=== PATIENT | female | born 1945 | race Hispanic/Latino ===

== ENCOUNTER 2016-11-23 19:30 | Emergency (ER) | payer MEDICARE, OTHER ==
--- NOTE | 2016-11-23 20:08 | Emergency Department Report ---
ED Altered Mental Status HPI - General Chief Complaint: Altered Mental Status Stated Complaint: ALTERED MENTAL STATUS Time Seen by Provider: 11/23/16 20:07 Source: patient, family, EMS Mode of arrival: Stretcher Limitations: Altered Mental Status - History of Present Illness Initial Comments: This is a 71-year-old female with a fairly long and somewhat to seeing history. She endorses history of long-standing back pain. She is working with a pain specialist is taking hydrocodone as well as Tylenol for this. She does pill counting with the pain specialist. She was noted to be 4 pills short on her tramadol. The pain specialist was not willing to write for additional doses. She is able to refill her prescription for tramadol on November 28. Being warned that she may have some withdrawal due to this she did preemptively go to a different ED. While there she did make a statement about possibly taking some A else to cause herself harm which ultimately resulted in her being placed under a 1013. She spent the next 2 days of the same ED facility while awaiting placement in a psychiatric facility. She is ultimately transitioned [facility] this morning. [facility] she was exerted to have some bizarre behavior. There was concern for possible delusion of medical etiology. And she is now here for this reason. Patient endorses by aunt and bizarre behavior and does not have a reason for why she was doing other than she is now having some withdrawal symptoms and feels like she is being suboptimally treated at [facility]. She indicates that she has much concern as well due to having a roommate and having significant sleep disorder. She is concerned that she will be a burden to her roommate. She is very clear and appropriate otherwise. 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 She otherwise states that she is feeling is okay in general. She denies any history of drugs of abuse. Associated Symptoms: denies: cough, fever/chills, nausea/vomiting, rash, seizure - Related Data Allergies Allergy/AdvReac Type Severity Reaction Status Date / Time ciprofloxacin [From Cipro] Allergy Headache Verified 11/23/16 20:01 ciprofloxacin HCl Allergy Headache Verified 11/23/16 20:01 [From Cipro] ED Review of Systems ROS: Stated complaint: ALTERED MENTAL STATUS Other details as noted in HPI Comment: All other systems reviewed and negative Constitutional: denies: chills, fever Eyes: denies: eye pain, eye discharge, vision change ENT: denies: ear pain, throat pain Respiratory: denies: cough, shortness of breath, wheezing Cardiovascular: denies: chest pain, palpitations Endocrine: no symptoms reported Gastrointestinal: denies: abdominal pain, nausea, diarrhea Genitourinary: denies: urgency, dysuria, discharge Musculoskeletal: denies: back pain, joint swelling, arthralgia Skin: denies: rash, lesions Neurological: denies: headache, weakness, paresthesias Psychiatric: as per HPI, anxiety. denies: depression, auditory hallucinations, visual hallucinations, suicidal thoughts Hematological/Lymphatic: denies: easy bleeding, easy bruising ED Past Medical Hx - Past Medical History Hx Hypertension: Yes Additional medical history: high cholesterol. spondylolisthesis, depression, bladdder problems - Surgical History Past Surgical History?: Yes Additional Surgical History: Hernia repaair, shoulder surgery - Social History Smoking Status: Never Smoker Substance Use Type: None ED Physical Exam - General Limitations: Altered Mental Status General appearance: alert, anxious, other - Head Head exam: Present: atraumatic, normocephalic - Eye Eye exam: Present: normal appearance, PERRL, EOMI - ENT ENT exam: Present: normal exam, normal orophraynx, mucous membranes moist - Neck Neck exam: Present: normal inspection. Absent: tenderness, lymphadenopathy ( somewhat agitated appearing and constantly moving.) - Respiratory Respiratory exam: Present: normal lung sounds bilaterally. Absent: respiratory distress, wheezes, rhonchi - Cardiovascular Cardiovascular Exam: Present: normal rhythm, tachycardia. Absent: systolic murmur, diastolic murmur, rubs, gallop - GI/Abdominal GI/Abdominal exam: Present: soft, normal bowel sounds. Absent: tenderness - Extremities Exam Extremities exam: Present: normal inspection. Absent: tenderness, pedal edema, calf tenderness - Back Exam Back exam: Present: normal inspection, tenderness (on the lateral subscapular region bilaterally extending down to the lower back region.). Absent: CVA tenderness (R), CVA tenderness (L) - Neurological Exam Neurological exam: Present: alert, oriented X3 - Psychiatric Psychiatric exam: Present: agitated, anxious - Skin Skin exam: Present: warm, dry, intact, normal color. Absent: rash ED Course Vital Signs 11/23/16 11/23/16 20:08 20:12 Temperature 99.3 F Pulse Rate 97 H Respiratory 20 20 Rate Blood Pressure 149/89 [Right] O2 Sat by Pulse 95 95 Oximetry - Reevaluation(s) Reevaluation #1: 11/23/16 20:55 ECG at 2035 with sinus tachycardia at 107 bpm with a normal AK and 132 ms does have right bundle branch block. Normal axis is noted. There is Q waves inferiorly otherwise unremarkable. Reevaluation #2: 11/23/16 21:00 In summary as is patient seems somewhat manic. I feel that this is inappropriate diagnoses given the fact of her movement disorder. Think this causes it to be difficult objectively. The patient's mental status. She does indicate that on a chronic basis she does have a lot of ticks and movements. I feel that she is quite lucid right now. She is very clear in describing what is occurred. She is somewhat long-winded in the process but otherwise is very appropriate and follows thinks early fashion. She is able to think complex terms. She has good insight and recollection of why she is here. I have very low suspicion of a medical or I derangement causing her delirium. I suspect her delirium was more an etiology of her stressors that she is under currently at the [facility]. I have offered her an oral Valium here. She is not sure whether she like to accept this or not. Regardless, medically she is clear and she is stable and safe to return back to [facility] at this time. 11/23/16 22:42 The long conversation with the patient's mother Maize III [id number] Bren. She concurs with my assessment that I felt the patient is been poorly managed in regards to her being placed on a 1013. She'll for now that I need to continue with this course until it is rescinded by the psychiatrist. I do not feel comfortable personally rescinding this without authorization from psychiatrist who she is under [facility]. Does not feel appropriate for me to as my specialty is not psychiatry. Regardless I do feel the patient can be better managed to [facility]. I didn't obtain her medication list which was unremitting metoprolol and to [place]. In addition I do feel that there are 2 very separate issues going on with #1 the suicidal claim that she presented with number to the withdrawal symptoms. I hope that once she is considered clear from the psychiatric standpoint she'll be allowed to go home as I suspect this is in her best interest. I did make attempts to talk with the psychiatrist to [facility]. I was unable to connect with the psychiatrist. We' ll repeat this note. Did encourage the customer service representative teacher at [facility] to assess psychiatrist to review this note. - Lab Data Result diagrams: 11/23/16 20:15 11/23/16 20:15 Lab Results 11/23/16 11/23/16 11/23/16 Range/Units 20:15 20:15 20:15 WBC 10.9 (4.5-11.0) K/mm3 RBC 4.89 (3.65-5.03) M/mm3 Hgb 15.8 H (10.1-14.3) gm/dl Hct 46.2 H (30.3-42.9) % MCV 94 (79-97) fl MCH 32 (28-32) pg MCHC 34 (30-34) % RDW 13.5 (13.2-15.2) % Plt Count 245 (140-440) K/mm3 Lymph % (Auto) 14.1 (13.4-35.0) % Bartow % (Auto) 7.7 H (0.0-7.3) % Eos % (Auto) 0.2 (0.0-4.3) % Baso % (Auto) 0.4 (0.0-1.8) % Lymph # 1.5 (1.2-5.4) K/mm3 Bartow # 0.8 (0.0-0.8) K/mm3 Eos # 0.0 (0.0-0.4) K/mm3 Baso # 0.0 (0.0-0.1) K/mm3 Seg Neutrophils % 77.6 H (40.0-70.0) % Seg Neutrophils # 8.4 H (1.8-7.7) K/mm3 Sodium 132 L (137-145) mmol/L Potassium 3.2 L (3.6-5.0) mmol/L Chloride 90.3 L (98-107) mmol/L Carbon Dioxide 24 (22-30) mmol/L Anion Gap 21 mmol/L BUN 23 H (7-17) mg/dL Creatinine 0.8 (0.7-1.2) mg/dL Estimated GFR > 60 ml/min BUN/Creatinine Ratio 28.75 % Glucose 130 H (65-100) mg/dL Lactic Acid 1.5 (0.7-2.0) mmol/L Calcium 9.9 (8.4-10.2) mg/dL Magnesium 2.4 H (1.7-2.3) mg/dL Total Bilirubin 0.7 (0.1-1.2) mg/dL AST 29 (5-40) units/L ALT 20 (7-56) units/L Alkaline Phosphatase 108 (35-129) units/L Total Protein 7.8 (6.3-8.2) g/dL Albumin 4.9 (3.9-5) g/dL Albumin/Globulin Ratio 1.7 % TSH (0.270-4.200) mlU/mL Urine Color (Yellow) Urine Turbidity (Clear) Urine pH (5.0-7.0) Ur Specific Aubrey (1.003-1.030) Urine Protein (Negative) mg/dL Urine Glucose (UA) (Negative) mg/dL Urine Ketones (Negative) mg/dL Urine Blood (Negative) Urine Nitrite (Negative) Urine Bilirubin (Negative) Urine Urobilinogen (<2.0) mg/dL Ur Leukocyte Esterase (Negative) Urine WBC (Auto) (0.0-6.0) /HPF Urine RBC (Auto) (0.0-6.0) /HPF Urine Mucus /HPF Urine HCG, Qual (Negative) Salicylates (2.8-20.0) mg/dL Urine Opiates Screen Urine Methadone Screen Acetaminophen (10.0-30.0) ug/mL Ur Barbiturates Screen Ur Phencyclidine Scrn Ur Amphetamines Screen U Benzodiazepines Scrn Urine Cocaine Screen U Marijuana (THC) Screen Drugs of Abuse Note Plasma/Serum Alcohol (0-0.07) gm% 11/23/16 11/23/16 11/23/16 Range/Units 20:15 20:15 20:15 WBC (4.5-11.0) K/mm3 RBC (3.65-5.03) M/mm3 Hgb (10.1-14.3) gm/dl Hct (30.3-42.9) % MCV (79-97) fl MCH (28-32) pg MCHC (30-34) % RDW (13.2-15.2) % Plt Count (140-440) K/mm3 Lymph % (Auto) (13.4-35.0) % Bartow % (Auto) (0.0-7.3) % Eos % (Auto) (0.0-4.3) % Baso % (Auto) (0.0-1.8) % Lymph # (1.2-5.4) K/mm3 [place]ow # (0.0-0.8) K/mm3 Eos # (0.0-0.4) K/mm3 Baso # (0.0-0.1) K/mm3 Seg Neutrophils % (40.0-70.0) % Seg Neutrophils # (1.8-7.7) K/mm3 Sodium (137-145) mmol/L Potassium (3.6-5.0) mmol/L Chloride (98-107) mmol/L Carbon Dioxide (22-30) mmol/L Anion Gap mmol/L BUN (7-17) mg/dL Creatinine (0.7-1.2) mg/dL Estimated GFR ml/min BUN/Creatinine Ratio % Glucose (65-100) mg/dL Lactic Acid (0.7-2.0) mmol/L Calcium (8.4-10.2) mg/dL Magnesium (1.7-2.3) mg/dL Total Bilirubin (0.1-1.2) mg/dL AST (5-40) units/L ALT (7-56) units/L Alkaline Phosphatase (35-129) units/L Total Protein (6.3-8.2) g/dL Albumin (3.9-5) g/dL Albumin/Globulin Ratio % TSH 1.740 (0.270-4.200) mlU/mL Urine Color (Yellow) Urine Turbidity (Clear) Urine pH (5.0-7.0) Ur Specific Aubrey (1.003-1.030) Urine Protein (Negative) mg/dL Urine Glucose (UA) (Negative) mg/dL Urine Ketones (Negative) mg/dL Urine Blood (Negative) Urine Nitrite (Negative) Urine Bilirubin (Negative) Urine Urobilinogen (<2.0) mg/dL Ur Leukocyte Esterase (Negative) Urine WBC (Auto) (0.0-6.0) /HPF Urine RBC (Auto) (0.0-6.0) /HPF Urine Mucus /HPF Urine HCG, Qual (Negative) Salicylates < 0.3 L (2.8-20.0) mg/dL Urine Opiates Screen Urine Methadone Screen Acetaminophen < 15.0 (10.0-30.0) ug/mL Ur Barbiturates Screen Ur Phencyclidine Scrn Ur Amphetamines Screen U Benzodiazepines Scrn Urine Cocaine Screen U Marijuana (THC) Screen Drugs of Abuse Note Plasma/Serum Alcohol (0-0.07) gm% 11/23/16 11/23/16 11/23/16 Range/Units 20:15 21:13 21:14 WBC (4.5-11.0) K/mm3 RBC (3.65-5.03) M/mm3 Hgb (10.1-14.3) gm/dl Hct (30.3-42.9) % MCV (79-97) fl MCH (28-32) pg MCHC (30-34) % RDW (13.2-15.2) % Plt Count (140-440) K/mm3 Lymph % (Auto) (13.4-35.0) % [place] % (Auto) (0.0-7.3) % Eos % (Auto) (0.0-4.3) % Baso % (Auto) (0.0-1.8) % Lymph # (1.2-5.4) K/mm3 [place] # (0.0-0.8) K/mm3 Eos # (0.0-0.4) K/mm3 Baso # (0.0-0.1) K/mm3 Seg Neutrophils % (40.0-70.0) % Seg Neutrophils # (1.8-7.7) K/mm3 Sodium (137-145) mmol/L Potassium (3.6-5.0) mmol/L Chloride (98-107) mmol/L Carbon Dioxide (22-30) mmol/L Anion Gap mmol/L BUN (7-17) mg/dL Creatinine (0.7-1.2) mg/dL Estimated GFR ml/min BUN/Creatinine Ratio % Glucose (65-100) mg/dL Lactic Acid (0.7-2.0) mmol/L Calcium (8.4-10.2) mg/dL Magnesium (1.7-2.3) mg/dL Total Bilirubin (0.1-1.2) mg/dL AST (5-40) units/L ALT (7-56) units/L Alkaline Phosphatase (35-129) units/L Total Protein (6.3-8.2) g/dL Albumin (3.9-5) g/dL Albumin/Globulin Ratio % TSH (0.270-4.200) mlU/mL Urine Color Yellow (Yellow) Urine Turbidity Clear (Clear) Urine pH 6.0 (5.0-7.0) Ur Specific Aubrey 1.015 (1.003-1.030) Urine Protein <15 mg/dl (Negative) mg/dL Urine Glucose (UA) Neg (Negative) mg/dL Urine Ketones Tr (Negative) mg/dL Urine Blood Neg (Negative) Urine Nitrite Neg (Negative) Urine Bilirubin Neg (Negative) Urine Urobilinogen < 2.0 (<2.0) mg/dL Ur Leukocyte Esterase Neg (Negative) Urine WBC (Auto) < 1.0 (0.0-6.0) /HPF Urine RBC (Auto) 3.0 (0.0-6.0) /HPF Urine Mucus Few /HPF Urine HCG, Qual Negative (Negative) Salicylates (2.8-20.0) mg/dL Urine Opiates Screen Presumptive negative Urine Methadone Screen Presumptive negative Acetaminophen (10.0-30.0) ug/mL Ur Barbiturates Screen Presumptive negative Ur Phencyclidine Scrn Presumptive negative Ur Amphetamines Screen Presumptive negative U Benzodiazepines Scrn Presumptive negative Urine Cocaine Screen Presumptive negative U Marijuana (THC) Screen Presumptive negative Drugs of Abuse Note Disclamer Plasma/Serum Alcohol < 0.01 (0-0.07) gm% Critical care attestation.: If time is entered above; I have spent that time in minutes in the direct care of this critically ill patient, excluding procedure time. ED Disposition Clinical Impression: Delirium due to general medical condition Disposition: DC/TX PSY HOSP/PSY UNIT Is pt being admited?: No Does the pt Need Aspirin: No Condition: Stable Additional Instructions: Your labs are normal here except for a slightly low potassium. You are safe to continue on your detox protocol at [facility]. Eat a diet with potassium rich foods. You don't have your ditropan or metoprolol on your medication list. These should be added. Referrals: PRIMARY CARE, [Primary Care Provider] - 3-5 Days Time of Disposition: 21:58
[2016-11-23 20:10] VITALS: BP 149/89
[2016-11-23 20:51] LABS: Basophils % (Auto) 0.4 % (0.0-1.8); Eosinophils % (Auto) 0.2 % (0.0-4.3); Hematocrit 46.2 % (30.3-42.9); Hemoglobin 15.8 gm/dl (10.1-14.3); Mean Corpuscular HGB Conc 34 % (30-34); Mean Corpuscular Hemoglobin 32 pg (28-32); Mean Corpuscular Volume 94 fl (79-97); Platelet Count 245 K/mm3 (140-440); Red Blood Count 4.89 M/mm3 (3.65-5.03); Red Cell Distribution Width 13.5 % (13.2-15.2); White Blood Count 10.9 K/mm3 (4.5-11.0)
[2016-11-23 20:56] LABS: Alanine Aminotransferase 20 units/L (7-56); Albumin 4.9 g/dL (3.9-5); Albumin/Globulin Ratio 1.7 %; Alkaline Phosphatase 108 units/L (35-129); Anion Gap 21 mmol/L; BUN/Creatinine Ratio 28.75; Bilirubin,Total 0.7 mg/dL (0.1-1.2); Blood Urea Nitrogen 23 mg/dL (7-17); Calcium 9.9 mg/dL (8.4-10.2); Carbon Dioxide 24 mmol/L (22-30); Chloride 90.3 mmol/L (98-107); Glucose 130 mg/dL (65-100); Magnesium 2.4 mg/dL (1.7-2.3); Potassium 3.2 mmol/L (3.6-5.0); Sodium 132 mmol/L (137-145); Total Protein 7.8 g/dL (6.3-8.2)
[2016-11-23 21:18] LABS: Urine Drugs of Abuse Note Disclamer
[2016-11-23] MEDS ORDERED: K-DUR PO ONE (21:22)
[2016-11-23 21:36] LABS: Bilirubin,Urine NEG (Negative); Blood,Urine NEG (Negative); Ketones,Urine TR mg/dL (Negative); Leukocyte Esterase,Urine NEG (Negative); Mucus,Urine FEW /HPF; Nitrite,Urine NEG (Negative); Protein,Urine <15 mg/dL mg/dL (Negative); Urobilinogen,Urine < 2.0 mg/dL (<2.0); WBC,Urine < 1.0 /HPF (0.0-6.0)
== END 2016-11-24 03:18 ==
LOC: ED 19:30
DX: F05 Delirium due to known physiological condition (principal); I10 Essential (primary) hypertension; E78.00 Pure hypercholesterolemia, unspecified; Z88.1 Allergy status to other antibiotic agents
CPT/HCPCS: 36415; 80053; 80307; 81001; 81025; 82140; 83735; 84443; 85025; 93005; 93010; 99285; G0480; 80320